=== PATIENT | female | born 1995 | race Caucasian/White ===

== ENCOUNTER 2017-07-18 11:50 | Emergency (ER) | payer BC, SELFPAY ==
[2017-07-18 11:52] VITALS: BP 130/70; PULSE 87; RESP 16; TEMP 36.6; O2SAT 99; BMI 21.1
--- NOTE | 2017-07-18 12:10 | RAD_ITS ---
STUDY: X-RAY - LEFT ELBOW REASON FOR EXAM: Female, 21 years old. Fell down 8 steps. Posterior pain radiating towards the hand. TECHNIQUE: 5 view(s) of the elbow. COMPARISON: None. FINDINGS: Normal visualized humerus and radius. There is a nondisplaced fracture through the ulnar olecranon extending into the ulnotrochlear articulation. Normal radiocapitellar and ulnotrochlear articulations. There is an associated joint effusion with elevation of the fat pads. The soft tissue structures are unremarkable. RAD/Elbow min 3 Views IMPRESSION: Nondisplaced fracture of the olecranon. Electronically Signed: Daniel Hawk DO at 13:13 EDT Tel [phone], Service support ,
[2017-07-18] MEDS: HYDROcodone Bitartrate/Apap 5/325 Tablet PO (12:20)
--- NOTE | 2017-07-18 14:04 | ED.VISSUMM ---
- ER Visit Summary Date of Service: 07/18/17 Chief Complaint: Elbow injury History of Present Illness: The patient is a 21 F with a mechanical fall. She landed directly on her left elbow. No other injuries or complaints. She does complain of some paresthesias in her distal left hand in the ulnar distribution. Physical Examination: Tenderness to palpation of the olecranon process. Pain with pronation and supination. Neurovascular intact distally except for paresthesias as noted above. There is an overlying abrasion but nothing communicating with the bone. Test Results: X-rays show an olecranon process fracture. Minimally displaced. Emergency Department Course and Treatment: Patient was placed in a splint. Will refer to orthopedics. Precautions given. She received a short course of Percocet. Precautions discussed. Treatment Plan: Above Disposition: Discharged Impression: 1. Left olecranon fracture This note was generated with [employer] dictation software. It may contain incorrect words, spelling, and punctuation that were not noted in review of the chart prior to signing ED Disposition - Plan for ED Patient: Chief Complaint: Upper Extremity Injury Referrals: Diego Vincent MD [Primary Care Provider] -
--- NOTE | 2017-07-18 14:06 | ED.DEP ---
ED Disposition - Plan for ED Patient: Chief Complaint: Upper Extremity Injury Instructions: ED Fx Elbow Prescriptions: Oxycodone HCl/Acetaminophen [Percocet 5/325] 1 tab PO Q6H PRN PRN 3 Days #12 tab PRN Reason: Pain Referrals: Rafael Michelle MD [STAFF PHYSICIAN] -
[2017-07-18 14:24] VITALS: BP 131/76; PULSE 83; RESP 14; O2SAT 99
== END 2017-07-18 14:25 | disposition home or self-care (01) ==
LOC: ED 12:59
PROVIDERS: Emergency Provider Emergency Medicine; Family Provider Pediatrics; PCP Pediatrics
DX: S52.022A Displaced fracture of olecranon process without intraarticular extension of left ulna, initial encounter for closed fracture (principal); Z79.899 Other long term (current) drug therapy; W18.30XA Fall on same level, unspecified, initial encounter; Y93.89 Activity, other specified; Y92.89 Other specified places as the place of occurrence of the external cause; Y99.8 Other external cause status
CPT/HCPCS: 29105; 73080; 99283

== ENCOUNTER 2018-03-23 10:23 | Emergency (ER) | payer BC, SELFPAY ==
[2018-03-23 10:25] VITALS: BP 133/83; PULSE 96; RESP 14; TEMP 36.7; O2SAT 98; BMI 21.1
--- NOTE | 2018-03-23 10:36 | US_ITS ---
STUDY: ABDOMINAL ULTRASOUND - RIGHT UPPER QUADRANT REASON FOR VISIT: Female, 22 years old. Abdominal pain TECHNIQUE: Multiple ultrasound images were obtained of the abdomen. TECHNICAL QUALITY: Good technical quality COMPARISON: None. FINDINGS: Liver: The liver measures 14.4 cm cm. There is normal echogenicity of the liver. The bile ducts are within normal limits. There is hepatic color flow. There is no demonstrated mass lesion. Gallbladder: Normal distended gallbladder. The gallbladder wall measures 2 mm mm. There is a negative sonographic Frausto's sign. There is no pericholecystic fluid. There are no gallstones. Common Bile Duct (C.B.D.): The common bile duct measures 5 mm mm. Pancreas: Normal size of the head, body of the pancreas. There is normal echogenicity of the pancreas. There is no demonstrated pancreatic mass or cyst. Right Kidney: Normal size of the right kidney. The right kidney measures 10.8 cm in longitudinal dimension cm. Normal renal cortex. The right cortex measures 1.6 cm cm. There is no demonstrated renal mass or cyst. There is no right hydronephrosis. US/Gallbladder IMPRESSION: Unremarkable ultrasound of the right upper quadrant. Electronically Signed: Tj Dougherty, at 11:32 EST Tel , Service support ,
--- NOTE | 2018-03-23 10:44 | ED.DCSUM_ITS ---
- ER Visit Summary Date of Service: 03/23/18 Chief Complaint: Abdominal pain History of Present Illness: The patient is a 22 F with upper abdominal pain for months. It has been getting worse. Worse with eating especially fatty foods. She feels like the food sits in her stomach and takes a long time to empty. Associated with nausea and vomiting. She is concerned about her gallbladder as her family has history of gallbladder disease. No fevers. No jaundice. No other GI symptoms. 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 History of appendectomy and endometriosis. Physical Examination: Afebrile vital signs unremarkable. Alert and oriented. No acute distress. Sitting and moving comfortably. Heart regular rate and rhythm. Lungs clear. Abdomen tender in the right upper quadrant and epigastric region. No guarding or rebound. Negative Frausto sign. CVA is nontender. Skin normal in color without jaundice or pallor. Test Results: We will check labs, urinalysis, and right upper quadrant ultrasound. Emergency Department Course and Treatment: Patient was treated fluids and Zofran while awaiting results. She declined pain medicine, on my initial evaluation. Hemoglobin 15.1 otherwise labs normal. test and urinalysis unremarkable. Ultrasound was unremarkable. Patient is appropriate for outpatient follow-up. No indication for further imaging, testing, admission, specialty consultation. She will be discharged with a course of Zofran. Follow-up with primary care for recheck. Return for new or worsening symptoms. Treatment Plan: As above Disposition: Discharge Impression: 1. Abdominal pain This note was generated with [employer] dictation software. It may contain incorrect words, spelling, and punctuation that were not noted in review of the chart prior to signing ED Disposition - Plan for ED Patient: Chief Complaint: Abd Pain Referrals: Diego Vincent MD [Primary Care Provider] -
[2018-03-23] MEDS: Ondansetron 4 MG/2 ML Vial IV (10:49)
[2018-03-23] MEDS: 0.9% Normal Saline 1,000 ML 1000 ML IV (10:49)
[2018-03-23 11:06] LABS: Absolute Lymphocyte Count 1.66 X10^3/ul (0.83-4.51); Absolute Neutrophil Count 2.8 X10^3/uL (2.0-7.7); Basophil# 0.01 X10^3/uL; Basophil% 0.2 % (0-1); Hematocrit 43.1 % (37-47); Hemoglobin 15.1 g/dl (12.0-15.0); Lymphocyte # 1.66 X10^3/ul (4.0); Lymphocyte % 33.8 % (19-41); Mean Corpuscular Volume 94.1 fL (81-99); Mean Platelet Vol. 9.8 fl (6.2-12.0); Monocyte# 0.41 X10^3/uL; Monocyte% 8.4 % (0-10); Neutrophil # 2.82 X10^3/uL (2.7-7.7); Neutrophil % 57.4 % (47-70); POSITIVE COUNT NO; POSITIVE DIFFERENTIAL NO; POSITIVE MORPHOLOGY NO; Platelet Count 359 K/mm3 (150-450); RBC Distribution Width CV 11.6 % (11.6-14.6); RBC Distribution Width SD 39.6 fl (35.1-43.9); Red Blood Count 4.58 M/mm3 (4.2-5.4); White Blood Count 4.9 K/mm3 (4.4-11.0)
[2018-03-23 11:15] LABS: ALB/GLOB Ratio 1.1 RATIO (0.9-2.4); AST(SGOT) 21 U/L (15-37); Alanine Aminotransfer ALT/SGPT 31 U/L (13-56); Albumin, Serum 3.8 g/dL (3.2-5.0); Alkaline Phosphatase 62 U/L (45-117); Anion Gap 8 (5-15); BUN 8 mg/dL (7-18); BUN/Creat Ratio 12.1 RATIO (10-20); Calcium,Total 8.5 mg/dL (8.5-10.1); Chloride 105 mmol/L (98-107); Creatinine, Serum 0.66 mg/dL (0.55-1.02); EST Glomerular Filtration Rate 118 mL/min (>60); Est Glom Filt Rate - Afr Amer 143 mL/min (>60); Estimated Creatinine Clearance 129.25 ml/min; Globulin 3.5 g/dL (2.2-4.2); Glucose 94 mg/dL (74-106); Lipase 51 U/L (73-393); Potassium 3.8 mmol/L (3.5-5.1); Protein, Total 7.3 g/dL (6.4-8.2); Sodium Level 141 mmol/L (136-145)
[2018-03-23 11:27] LABS: Pregnancy, Serum, hCG Quali. NEGATIVE Negative (0-9 Nonpreg)
[2018-03-23 11:35] LABS: Bacteria 0 SEEN /hpf (None Seen); Mucous, Urine 0 SEEN /hpf (<or=2+); Red Blood Cells-Urine 0 SEEN /hpf (0-5); Squamous Epithelial Cells - UA 0 SEEN /hpf (5-10); White Blood Cells 0 SEEN /hpf (0-5)
[2018-03-23 11:36] LABS: Color, Urine Yellow (Yellow); Glucose, Dipstick Normal (Normal); Ketone-Dipstick Negative (Negative); Leukocyte Esterase-Dipstick Negative /ul (Negative); Nitrite-Dipstick Negative (Negative); Occult Blood-Urine Negative /ul (Negative); Protein-Dipstick Negative (Negative); Specific Gravity, Urine 1.015 (1.002-1.030); Urine Bilirubin Dipstick Negative (Negative); Urine Clarity Clear (Clear); Urine Urobilinogen Normal (Normal)
--- NOTE | 2018-03-23 11:50 | ED.DEP ---
ED Disposition - Plan for ED Patient: Chief Complaint: Abd Pain Instructions: ED Abdominal Pain Unkn Cause Prescriptions: Ondansetron [Zofran Odt] 4 mg PO Q8H PRN PRN #10 tab PRN Reason: Nausea Referrals: Diego Vincent MD [Primary Care Provider] -
[2018-03-23 11:57] VITALS: BP 108/57; PULSE 84; RESP 18; O2SAT 99
--- OUTSIDE RECORDS SUMMARY | 2018-05-17 19:52 | XMS RPT_ITS ---
:1995 Author Organization [facility] Care Team Providers Name Role Phone RAFAEL CALI MD Attending Unavailable PHYSICIAN, NONE Primary Care Unavailable RAFAEL CALI MD Attending Unavailable PHYSICIAN, NONE Primary Care Unavailable ALLEN BAUGH Attending Unavailable Diego Vincent Primary Care Unavailable Tj Coelho Attending Unavailable Diego Vincent Primary Care Unavailable Tj Coelho Attending Unavailable PROBLEMS PROBLEMS DATE TYPE CONDITION / CODE ATTENDING STATUS SOURCE 07/18/2017 Unknown S42.402A - Tj Coelho Active [facility] Unspecified Community fracture of lower Hospital end of left Repository humerus, initial encounter for closed fracture / S42.402A(ICD-10) PROCEDURES PROCEDURES No Procedure Records FoundRESULTS RESULTS DISCHARGE INSTRUCTION Observed: 03/23/2018 Status: F Source: [place] 12:04 PM [facility] REPOSITORY [facility] Medical Records Department [address] [place] [address] Discharge Instruction 03/23/18 1150 MR#: [id number] Acct: [id number] Name: ROCIO ALVARADO Rep #: [id number] : 1995 22 From: Tj Coelho MD PCP: Diego Vincent MD Status: DEP ER ED Disposition - Plan for ED Patient: Chief Complaint: Abd Pain Instructions: ED Abdominal Pain Unkn Cause Prescriptions: Ondansetron [Zofran Odt] 4 mg PO Q8H PRN PRN #10 tab PRN Reason: Nausea Referrals: Diego Vincent MD [Primary Care Provider] - What to do if you have Problems For any increased pain, shortness of breath, bleeding, nausea or vomiting, chest pain, or any unexpected problems, contact your Primary Care Provider. Call [facility] ([phone]) or report to the closest Emergency Room. Call 911 if necessary. 03/23/18 1204 <Electronically signed by Tj Coelho MD> Date Tj Coelho MD Cosigner Signature (If Indicated): Date CC: Diego Vincent MD EMERGENCY DEPARTMENT Observed: 03/23/2018 Status: F Source: [place] SUMMARY 12:04 PM [facility] REPOSITORY [facility] Medical Records Department [address] [place] [id number] Emergency Department Summary 03/23/18 1042 MR#: [id number] Acct: [id number] Name: ROCIO ALVARADO Rep #: [id number] : 1995 22 From: Tj Coelho MD PCP: Diego Vincent MD Status: DEP ER - ER Visit Summary Date of Service: 03/23/18 Chief Complaint: Abdominal pain History of Present Illness: The patient is a 22 F with upper abdominal pain for months. It has been getting worse. Worse with eating especially fatty foods. She feels like the food sits in her stomach and takes a long time to empty. Associated with nausea and vomiting. She is concerned about her gallbladder as her family has history of gallbladder disease. No fevers. No jaundice. No other GI symptoms. No new or HORSE SHOW JUDGE symptoms. History of appendectomy and endometriosis. Physical Examination: Afebrile vital signs unremarkable. Alert and oriented. No acute distress. Sitting and moving comfortably. Heart regular rate and rhythm. Lungs clear. Abdomen tender in the right upper quadrant and epigastric region. No guarding or rebound. Negative Frausto sign. CVA is nontender. Skin normal in color without jaundice or pallor. Test Results: We will check labs, urinalysis, and right upper quadrant ultrasound. Emergency Department Course and Treatment: Patient was treated fluids and Zofran while awaiting results. She declined pain medicine, on my initial evaluation. Hemoglobin 15.1 otherwise labs normal. test and urinalysis unremarkable. Ultrasound was unremarkable. Patient is appropriate for outpatient follow-up. No indication for further imaging, testing, admission, specialty consultation. She will be discharged with a course of Zofran. Follow-up with primary care for recheck. Return for new or worsening symptoms. Treatment Plan: As above Disposition: Discharge Impression: 1. Abdominal pain This note was generated with [employer] dictation software. It may contain incorrect words, spelling, and punctuation that were not noted in review of the chart prior to signing ED Disposition - Plan for ED Patient: Chief Complaint: Abd Pain Referrals: Diego Vincent MD [Primary Care Provider] - What to do if you have Problems For any increased pain, shortness of breath, bleeding, nausea or vomiting, chest pain, or any unexpected problems, contact your Primary Care Provider. Call [facility] ([phone]) or report to the closest Emergency Room. Call 911 if necessary. 03/23/18 1204 <Electronically signed by Tj Coelho MD> Date Tj Coelho MD Cosigner Signature (If Indicated): Date CC: Diego Vincent MD URINALYSIS, COMPLETE Collected: 03/23/2018 Status: F Source: [place] 11:30 AM [facility] REPOSITORY Order Comment: How was Urine Obtained? CLEAN CATCH TYPE CODE TESTS RESULT OUT OF RANGE REFERENCE UNITS LAB L400.3000 Yellow COLOR Normal Yellow LAB L400.3050 Clear Normal CLARITY Clear LAB L400.3200 Normal mg/dl Normal GLUCOSE, UR Normal LAB L400.3300 Negative mg/dL Normal BILIRUBIN URINE Negative LAB L400.3400 Negative mg/dl Normal KETONE UR Negative LAB L400.3465 1.002-1.030 Normal SP.GR. DIPSTX 1.015 LAB L400.3550 5.0 - 8.0 pH UR Normal 8.0 LAB L400.3600 Negative mg/dl PROT Normal DIPSTX Negative LAB L400.3700 Normal mg/dl Normal UROBILI Normal LAB L400.3750 Negative Normal NITRITE UR Negative LAB L400.3780 Negative /ul Normal OCCULT BLOOD-UR Negative LAB L400.3800 Negative /ul LEUK Normal ESTERASE Negative LAB L400.4050 0-5 /hpf WBC 0 Normal SEEN LAB L400.4100 0-5 /hpf 0 Normal RBC-UA SEEN LAB L400.4150 5-10 /hpf SQUAM 0 Normal EPI SEEN LAB L400.4300 None Seen /hpf 0 Normal BACTERIA SEEN LAB L400.4350 <or=2+ /hpf 0 Normal MUCUS, URINE SEEN Performed By: #### L400.0001 #### [facility] [address] [place], [place], [address] CBC W/DIFF, AUTOMATED Collected: 03/23/2018 Status: F Source: [place] 10:50 AM [facility] REPOSITORY TYPE CODE TESTS RESULT OUT OF RANGE REFERENCE UNITS LAB L100.1000 4.4-11.0 K/mm3 Normal WBC 4.9 LAB L100.1200 4.2-5.4 M/mm3 Normal RBC 4.58 LAB L100.1300 12.0-15.0 g/dl High HGB 15.1 LAB L100.1400 37-47 % Normal HCT 43.1 LAB L100.1500 81-99 fL Normal MCV 94.1 LAB L100.1600 27.0-32.0 pg High MCH 33.0 LAB L100.1700 32-36 g/gl Normal MCHC 35.0 LAB L100.1810 11.6-14.6 % Normal RDW CV 11.6 LAB L100.1820 35.1-43.9 fl Normal RDW SD 39.6 LAB L100.1900 150-450 K/mm3 Normal PLT 359 LAB L100.2000 6.2-12.0 fl Normal MPV 9.8 LAB L100.2100 47-70 % Normal NEUT% 57.4 LAB L100.2200 19-41 % Normal LY% 33.8 LAB L100.2300 0-10 % Normal MONO% 8.4 LAB L100.2400 0-5 % Normal EO% 0.0 LAB L100.2500 0-1 % Normal BASO% 0.2 LAB L100.2550 0.0-0.9 % Normal IM GRAN % 0.200 Result Comment: IG% - Immature Granulocytes (promyelocytes, myelocytes and metamyelocytes) > 1% indicates that a LEFT SHIFT is Present. LAB L100.2620 2.0-7.7 X10 3/uL Normal Absolute Neut 2.8 LAB L100.2720 0.83-4.51 X10 3/ul Normal Absolute Lymph 1.66 Performed By: #### L100.0100 #### [facility] [address] [place], [address] COMPREHENSIVE METABOLIC Collected: 03/23/2018 Status: F Source: [facility] 10:50 AM [facility] REPOSITORY TYPE CODE TESTS RESULT OUT OF RANGE REFERENCE UNITS LAB L501.0100 74-106 mg/dL Normal GLU 94 Result Comment: Please note revised GLUCOSE reference range effective 2017. LAB L501.1000 7-18 mg/dL Normal BUN 8 LAB L501.1100 0.55-1.02 mg/dL Normal CREAT,SERUM 0.66 Result Comment: The validity of the calculated GFR AND GFRAA in patients over 70 years has not been determined. Clinical correlation is essential. LAB L501.1110 >60 mL/min Normal EST GFR 118 Result Comment: Non- GFR Calc LAB L501.1115 >60 mL/min Normal EST GFR - AA 143 Result Comment: GFR Calc LAB L501.1255 ml/min Normal Estimated CRCL 129.25 LAB L501.1300 10-20 RATIO BUN/CRE Normal 12.1 LAB L501.1500 6.4-8. g/dL 2 T PROT Normal 7.3 LAB L501.1800 3.2-5. g/dL 0 ALB Normal 3.8 LAB L501.1950 2.2-4. g/dL 2 GLOB Normal 3.5 LAB L501.2000 0.9-2. RATIO 4 A/G Normal 1.1 LAB L501.2200 8.5-10 mg/dL .1 CA Normal 8.5 LAB L501.4100 15-37 U/L AST Normal 21 LAB L501.4305 45-117 U/L ALK P Normal 62 LAB L501.4405 13-56 U/L ALT Normal 31 LAB L501.4600 0.20-1 mg/dL .00 T BILI Normal 0.50 LAB L501.5300 136-14 mmol/L 5 NA Normal 141 LAB L501.5600 3.5-5. mmol/L 1 K Normal 3.8 LAB L501.5900 98-107 mmol/L CL Normal 105 LAB L501.6100 21.0-3 mmol/L 2.0 CO2 Normal 28.0 LAB L501.6200 5-15 GAP Normal 8 Performed By: #### L500.4050, L501.2450 #### [facility] [address] [place], [place], [address] LIPASE Collected: 03/23/2018 Status: F Source: [place] 10:50 AM [facility] REPOSITORY TYPE CODE TESTS RESULT OUT OF REFERENCE UNITS RANGE LAB L501.2450 73-393 U/L Low LIPASE 51 Performed By: #### L500.4050, L501.2450 #### [facility] [address] [place], [address] ,SERUM,HCG QUALI. Collected: Status: F Source: [place] 03/23/2018 10:50 AM [facility] REPOSITORY TYPE CODE TESTS RESULT OUT OF REFERENCE UNITS RANGE LAB L700.7000 0-9 Nonpreg Negative Normal HCGSQUAL NEGATIVE LAB L700.6700 =>Qualitative mIU/mL Normal HCG Qual < 1 triggr Performed By: #### L700.6800 #### [facility] [address] [place], [address] GALLBLADDER Observed: 03/23/2018 Status: F Source: [place] 10:38 AM [facility] REPOSITORY [facility] Imaging Services [address] [place] [address] Gallbladder MR#: [id number] Acct: [id number] Name: ROCIO ALVARADO Rep #: [id number] : 1995 F 22 From: Tj Dougherty MD PCP: Diego Vincent MD Status: REG ER Study: Gallbladder Date of Exam: 03/23/18 Exam# [id number] Ordering Dr: Tj Coelho MD STUDY: ABDOMINAL ULTRASOUND - RIGHT UPPER QUADRANT REASON FOR VISIT: Female, 22 years old. Abdominal pain TECHNIQUE: Multiple ultrasound images were obtained of the abdomen. TECHNICAL QUALITY: Good technical quality COMPARISON: None. FINDINGS: Liver: The liver measures 14.4 cm cm. There is normal echogenicity of the liver. The bile ducts are within normal limits. There is hepatic color flow. There is no demonstrated mass lesion. Gallbladder: Normal distended gallbladder. The gallbladder wall measures 2 mm mm. There is a negative sonographic Frausto's sign. There is no pericholecystic fluid. There are no gallstones. Common Bile Duct (C.B.D.): The common bile duct measures 5 mm mm. Pancreas: Normal size of the head, body of the pancreas. There is normal echogenicity of the pancreas. There is no demonstrated pancreatic mass or cyst. Right Kidney: Normal size of the right kidney. The right kidney measures 10.8 cm in longitudinal dimension cm. Normal renal cortex. The right cortex measures 1.6 cm cm. There is no demonstrated renal mass or cyst. There is no right hydronephrosis. US/Gallbladder IMPRESSION: Unremarkable ultrasound of the right upper quadrant. Electronically Signed: Tj Dougherty, at 11:32 EST Tel , Service support , CC: Diego Vincent MD; Tj Coelho MD Boat Joiner: Signed PROGRESS Observed: 08/23/2017 Status: COMPLETED Source: [place] 10:12 AM [facility] REPOSITORY HNO ID: [id number] Author: Kaia Garcia Service: (none) Author Type: Nurse Practitioner Type: Progress Notes Filed: 08/23/2017 10:34 AM Note Text: Subjective HPI Rocio Alvarado is a 21 year old female who presents with 3 days of cough, sneezing, congestion. She has a history of chronic bronchitis and usually uses advair inhaler at home but no longer has it. She would typically use this for a few days at the onset of a URI. She also usually uses flonase for spring allergies. She has albuterol inhaler at home and has been using it as well. Review of Systems Constitutional: Negative. Negative for fever. HENT: Positive for congestion and sore throat. Negative for ear pain. Respiratory: Positive for cough, sputum production (increased amount) and shortness of breath. Cardiovascular: Positive for chest pain. Gastrointestinal: Negative. Negative for abdominal pain, diarrhea, nausea and vomiting. Musculoskeletal: Negative. Skin: Negative. BP 118/70 Pulse (!) 126 Temp 37.2 ?C (99 ?F) (Tympanic) Resp 18 Wt 65.1 kg (143 lb 9.6 oz) SpO2 98% PAST MEDICAL HISTORY Diagnosis Date - ADHD (attention deficit hyperactivity disorder) - Borderline personality disorder - Endometriosis PAST SURGICAL HISTORY Procedure Laterality Date - APPENDECTOMY HX 12/2014 endometriosis found at that time ALLERGIES Patient has no known allergies. MEDICATIONS albuterol HFA (PROVENTIL HFA, VENTOLIN HFA) 90 mcg/actuation inhaler Inhale 2 Puffs as instructed. Avacqkihfrcjykt-Uipbyootw-GU (BROMFED DM) 2-30-10 mg/5 mL syrup Take 5-10 mL by mouth four times daily as needed. albuterol HFA (PROAIR HFA) 90 mcg/actuation inhaler Inhale 2 Puffs as instructed every 4 hours as needed. dextroamphetamine-amphetamine (ADDERALL) 20 mg tablet Take 20 mg by mouth three times daily. ALPRAZolam (XANAX) 1 mg tablet Take 1.5 mg by mouth at bedtime as needed. lamoTRIgine ER (LAMICTAL XR) 250 mg 24 hr tablet Take 250 mg by mouth once daily. venlafaxine XR (EFFEXOR XR) 150 mg 24 hr capsule Take 175 mg by mouth once daily. hydroCHLOROthiazide (HYDRODIURIL, ESIDRIX) 50 mg tablet Take 50 mg by mouth once daily. FAMILY HISTORY Problem Relation Age of Onset - None Mother - None Father Social History Substance Use Topics - Smoking status: Never Smoker - Smokeless tobacco: Never Used - Alcohol use Yes Objective Physical Exam Constitutional: She is well-developed, well-nourished, and in no distress. HENT: Head: Normocephalic. Right Ear: Tympanic membrane, external ear and ear canal normal. Left Ear: Tympanic membrane, external ear and ear canal normal. Nose: Nose normal. Mouth/Throat: Uvula is midline, oropharynx is clear and moist and mucous membranes are normal. No posterior oropharyngeal edema or posterior oropharyngeal erythema. Eyes: Conjunctivae are normal. Neck: Neck supple. Cardiovascular: Normal rate, regular rhythm and normal heart sounds. Pulmonary/Chest: Effort normal and breath sounds normal. No respiratory distress. She has no wheezes. She has no rales. Lymphadenopathy: She has no cervical adenopathy. Neurological: She is alert. Skin: Skin is warm and dry. No rash noted. Nursing note and vitals reviewed. ASSESSMENT/PLAN: 1. Sinobronchitis - ICD9: 473.9, 490, ICD10: J32.9, J40 - Supportive care with plenty of fluids, rest, and analgesia prn. - refills given for therapies that have prevented worsening in the past. - FLUTICASONE 100 MCG-SALMETEROL 50 MCG/DOSE BLISTR POWDR FOR INHALATION - FLUTICASONE 50 MCG/ACTUATION NASAL SPRAY,SUSPENSION - ALBUTEROL SULFATE HFA 90 MCG/ACTUATION AEROSOL INHALER - Follow-up with your PCP in 3-5 days if symptoms have not improved or sooner if symptoms worsen - Discussed red flags and need for immediate medical evaluation if any occur. - Discussed supportive care treatment with fluids, rest and analgesia. - Discussed expected course of illness Kaia Garcia APRN.D[facility] MSESINAOV Observed: 08/23/2017 Status: COMPLETED Source: [place] 10:00 AM [facility] REPOSITORY Office Visit (WSTR) ROCIO ALVARADO ([id number]) 1995 F Date Time Provider Department 08/23/17 10:00 AM KAIA GARCIA ([place]) [facility] During your visit today, we recorded the following information about you: Temperature Pulse Respiration Blood pressure 99 degrees 126/minute 18/minute 118/70 Weight 65.1 kg Kaia Garcia APRN.D[facility] 08/23/2017 10:34 AM Signed Subjective HPI Rocio Alvarado is a 21 year old female who presents with 3 days of cough, sneezing, congestion. She has a history of chronic bronchitis and usually uses advair inhaler at home but no longer has it. She would typically use this for a few days at the onset of a URI. She also usually uses flonase for spring allergies. She has albuterol inhaler at home and has been using it as well. Review of Systems Constitutional: Negative. Negative for fever. HENT: Positive for congestion and sore throat. Negative for ear pain. Respiratory: Positive for cough, sputum production (increased amount) and shortness of breath. Cardiovascular: Positive for chest pain. Gastrointestinal: Negative. Negative for abdominal pain, diarrhea, nausea and vomiting. Musculoskeletal: Negative. Skin: Negative. BP 118/70 Pulse (!) 126 Temp 37.2 ?C (99 ?F) (Tympanic) Resp 18 Wt 65.1 kg (143 lb 9.6 oz) SpO2 98% PAST MEDICAL HISTORY Diagnosis Date - ADHD (attention deficit hyperactivity disorder) - Borderline personality disorder - Endometriosis PAST SURGICAL HISTORY Procedure Laterality Date - APPENDECTOMY HX 12/2014 endometriosis found at that time ALLERGIES Patient has no known allergies. MEDICATIONS albuterol HFA (PROVENTIL HFA, VENTOLIN HFA) 90 mcg/actuation inhaler Inhale 2 Puffs as instructed. Lvwtsxdukymioht-Qhozxxhyq-TB (BROMFED DM) 2-30-10 mg/5 mL syrup Take 5-10 mL by mouth four times daily as needed. albuterol HFA (PROAIR HFA) 90 mcg/actuation inhaler Inhale 2 Puffs as instructed every 4 hours as needed. dextroamphetamine-amphetamine (ADDERALL) 20 mg tablet Take 20 mg by mouth three times daily. ALPRAZolam (XANAX) 1 mg tablet Take 1.5 mg by mouth at bedtime as needed. lamoTRIgine ER (LAMICTAL XR) 250 mg 24 hr tablet Take 250 mg by mouth once daily. venlafaxine XR (EFFEXOR XR) 150 mg 24 hr capsule Take 175 mg by mouth once daily. hydroCHLOROthiazide (HYDRODIURIL, ESIDRIX) 50 mg tablet Take 50 mg by mouth once daily. FAMILY HISTORY Problem Relation Age of Onset - None Mother - None Father Social History Substance Use Topics - Smoking status: Never Smoker - Smokeless tobacco: Never Used - Alcohol use Yes Objective Physical Exam Constitutional: She is well-developed, well-nourished, and in no distress. HENT: Head: Normocephalic. Right Ear: Tympanic membrane, external ear and ear canal normal. Left Ear: Tympanic membrane, external ear and ear canal normal. Nose: Nose normal. Mouth/Throat: Uvula is midline, oropharynx is clear and moist and mucous membranes are normal. No posterior oropharyngeal edema or posterior oropharyngeal erythema. Eyes: Conjunctivae are normal. Neck: Neck supple. Cardiovascular: Normal rate, regular rhythm and normal heart sounds. Pulmonary/Chest: Effort normal and breath sounds normal. No respiratory distress. She has no wheezes. She has no rales. Lymphadenopathy: She has no cervical adenopathy. Neurological: She is alert. Skin: Skin is warm and dry. No rash noted. Nursing note and vitals reviewed. ASSESSMENT/PLAN: 1. Sinobronchitis - ICD9: 473.9, 490, ICD10: J32.9, J40 - Supportive care with plenty of fluids, rest, and analgesia prn. - refills given for therapies that have prevented worsening in the past. - FLUTICASONE 100 MCG-SALMETEROL 50 MCG/DOSE BLISTR POWDR FOR INHALATION - FLUTICASONE 50 MCG/ACTUATION NASAL SPRAY,SUSPENSION - ALBUTEROL SULFATE HFA 90 MCG/ACTUATION AEROSOL INHALER - Follow-up with your PCP in 3-5 days if symptoms have not improved or sooner if symptoms worsen - Discussed red flags and need for immediate medical evaluation if any occur. - Discussed supportive care treatment with fluids, rest and analgesia. - Discussed expected course of illness KIANA Serrato APRN.CNP 08/23/2017 10:20 AM Signed Take medications as prescribed. If not improving in 3-5 days, or you have worsening symptoms, see your primary care provider for recheck. ACUTE BRONCHITIS: You have acute bronchitis. This means the airway passages in your lungs are inflamed. Bronchitis may be caused by viruses or bacteria. Inhaling cigarette smoke will always make it worse. Exposure to irritating chemicals or second hand smoke as well as allergies can contribute to bronchitis. Repeat episodes of bronchitis may cause lifelong lung problems. Acute bronchitis is usually treated with rest, fluids, cough medicine, and possibly antibiotics or inhaled medicine to open up the small airways. It is very important that you avoid smoke and drink increased amounts of fluids. A cool air vaporizer can help thin bronchial secretions. This makes it easier to cough and clear your chest. If you are a cigarette smoker, consider using nicotine gum or skin patches to help you withdraw. Recovery from bronchitis is often slow, but you should start feeling better after 2-3 days of treatment. Please call your doctor or return here if you have any of the following symptoms: - Increased fever, chills, or chest pain. - Severe shortness of breath or bloody sputum. - Do not improve after 3 days of proper treatment. Referring Provider: SELF [200] Allergies As of Date: 08/23/2017 (No Known Allergies) Date Reviewed: 08/23/2017 Reviewed by: aKia (Rosario Garcia - Fully Assessed Reason for Visit: cough, sneezing and congestion [Other] Cmt: x 2-3 days- she has allergies and is prone to bronchitis-she feels her chest getting tighter Visit Diagnosis:Sinobronchitis [J32.9, J40] Order(s):fluticasone-salmeterol (ADVAIR DISKUS) 100-50 mcg/dose dsdvInhale 1 Puff as instructed twice daily. Rinse mouth out after use with water.Disp: 1 InhalerRfl: 0 fluticasone (FLONASE) 50 mcg/actuation nasal sprayUse 2 Sprays in each nostril once daily. Rinse mouth after use.Disp: 1 BottleRfl: 11 albuterol HFA (PROAIR HFA) 90 mcg/actuation inhalerInhale 2 Puffs as instructed every 4 hours as needed.Disp: 1 InhalerRfl: 0 Prescriptions as of 08/23/2017 Sig: ALBUTEROL SULFATE HFA 90 MCG/* Inhale 2 Puffs as instructed * ALBUTEROL SULFATE HFA 90 MCG/* Inhale 2 Puffs as instructed. BROMPHENIRAMINE-PSEUDOEPHEDRI* Take 5-10 mL by mouth four ti* DEXTROAMPHETAMINE-AMPHETAMINE* Take 20 mg by mouth three avila* ALPRAZOLAM 1 MG TABLET Take 1.5 mg by mouth at bedti* LAMOTRIGINE ER 250 MG TABLET,* Take 250 mg by mouth once luanne* VENLAFAXINE ER 150 MG CAPSULE* Take 175 mg by mouth once luanne* FLUTICASONE 100 MCG-SALMETERO* Inhale 1 Puff as instructed t* FLUTICASONE 50 MCG/ACTUATION * Use 2 Sprays in each nostril * HYDROCHLOROTHIAZIDE 50 MG TAB* Take 50 mg by mouth once nena* Problem List As Of Date 08/23/2017 Noted Resolved Endometriosis [N80.9] Borderline personality disorder [F60.3] ADHD (attention deficit hyperactivity disorder)* Other instructions from your clinician: Take medications as prescribed. If not improving in 3- 5 days, or you have worsening symptoms, see your primary care provider for recheck. ACUTE BRONCHITIS: You have acute bronchitis. This means the airway passages in your lungs are inflamed. Bronchitis may be caused by viruses or bacteria. Inhaling cigarette smoke will always make it worse. Exposure to irritating chemicals or second hand smoke as well as allergies can contribute to bronchitis. Repeat episodes of bronchitis may cause lifelong lung problems. Acute bronchitis is usually treated with rest, fluids, cough medicine, and possibly antibiotics or inhaled medicine to open up the small airways. It is very important that you avoid smoke and drink increased amounts of fluids. A cool air vaporizer can help thin bronchial secretions. This makes it easier to cough and clear your chest. If you are a cigarette smoker, consider using nicotine gum or skin patches to help you withdraw. Recovery from bronchitis is often slow, but you should start feeling better after 2-3 days of treatment. Please call your doctor or return here if you have any of the following symptoms: - Increased fever, chills, or chest pain. - Severe shortness of breath or bloody sputum. - Do not improve after 3 days of proper treatment. Prescriptions ordered this encounter Disp Refills Start End FLUTICASONE 100 MCG-SALMETEROL 50 MC* 1 In* 0 08/23/2017 Route: INHALATION Sig: Inhale 1 Puff as instructed twice daily. Rinse mouth out after use with water. FLUTICASONE 50 MCG/ACTUATION NASAL S* 1 Cornelio* 11 08/23/2017 Route: EACH NOSTRIL Sig: Use 2 Sprays in each nostril once daily. Rinse mouth after use. ALBUTEROL SULFATE HFA 90 MCG/ACTUATI* 1 In* 0 08/23/2017 Route: INHALATION Sig: Inhale 2 Puffs as instructed every 4 hours as needed. Medications Discontinued During This Encounter albuterol HFA (PROAIR HFA) 90 mcg/ac* 1 In* 0 06/27/2017 08/23/2017 Route: INHALATION Sig: Inhale 2 Puffs as instructed every 4 hours as needed. Disc: Reason for discontinue is not on file. Encounter Status:Closed by KAIA GARCIA on 08/23/17 XR ELBOW TWO VIEWS Observed: 07/24/2017 Status: F Source: [employer] 11:07 AM [facility] REPOSITORY ORIGINAL XR ELBOW TWO VIEWS LEFT CLINICAL STATEMENT: lt elbow orif COMPARISON: None FINDINGS:2 intraoperative images were recorded. Dose was measured at 20.89 mGy. Metallic screw is in place within the ulna. Interpreted By: Ingrid Manrique MD Preliminary Report By: Ingrid Manrique MD Electronically Signed By: Ingrid Manrique MD Dictated Date: 07/25/2017 8:37:04 AM Prelim Date: 07/25/2017 8:37:04 AM Sign Date: 07/25/2017 8:38:06 AM XR FLUORO < 1HR Observed: 07/24/2017 Status: F Source: [facility] TIME 11:06 AM [facility] REPOSITORY ORIGINAL Images acquired, not reported on this accession number. PREGU Collected: 07/24/2017 Status: F Source: [email or web address] 7:22 AM [facility] REPOSITORY TYPE CODE TESTS RESULT OUT OF RANGE REFERENCE UNITS LAB PREGU(LOIN C) Test Negative Urine LAB PRUG1(LOIN C) Unknown test HCG not (u) int detected. Performed By: #### PREGU #### [facility] [address] [place], [place] [address] EMERGENCY DEPARTMENT Observed: 07/18/2017 Status: F Source: [place] SUMMARY 5:07 PM [facility] REPOSITORY [facility] Medical Records Department [address] [place] [address] Emergency Department Summary 07/18/17 1404 MR#: [id number] Acct: [id number] Name: ROCIO ALVARADO Rep #: [id number] : 1995 21 From: Tj Coelho MD PCP: Diego Vincent MD Status: DEP ER - ER Visit Summary Date of Service: 07/18/17 Chief Complaint: Elbow injury History of Present Illness: The patient is a 21 F with a mechanical fall. She landed directly on her left elbow. No other injuries or complaints. She does complain of some paresthesias in her distal left hand in the ulnar distribution. Physical Examination: Tenderness to palpation of the olecranon process. Pain with pronation and supination. Neurovascular intact distally except for paresthesias as noted above. There is an overlying abrasion but nothing communicating with the bone. Test Results: X-rays show an olecranon process fracture. Minimally displaced. Emergency Department Course and Treatment: Patient was placed in a splint. Will refer to orthopedics. Precautions given. She received a short course of Percocet. Precautions discussed. Treatment Plan: Above Disposition: Discharged Impression: 1. Left olecranon fracture This note was generated with [employer] dictation software. It may contain incorrect words, spelling, and punctuation that were not noted in review of the chart prior to signing ED Disposition - Plan for ED Patient: Chief Complaint: Upper Extremity Injury Referrals: Diego Vincent MD [Primary Care Provider] - What to do if you have Problems For any increased pain, shortness of breath, bleeding, nausea or vomiting, chest pain, or any unexpected problems, contact your Primary Care Provider. Call [employer] [facility] ([phone]) or report to the closest Emergency Room. Call 911 if necessary. 07/18/171706 <Electronically signed by Tj Coelho MD> Date Tj Coelho MD Cosigner Signature (If Indicated): Date _ CC: Diego Vincent MD DISCHARGE INSTRUCTION Observed: 07/18/2017 Status: F Source: [place] 5:07 PM [facility] REPOSITORY [facility] Medical Records Department [facility] [place] [address] Discharge Instruction 07/18/17 1406 MR#: [id number] Acct: [id number] Name: ROCIO ALVARADO Rep #: [id number] : 1995 21 From: Tj Coelho MD PCP: Diego Vincent MD Status: DEP ER ED Disposition - Plan for ED Patient: Chief Complaint: Upper Extremity Injury Instructions: ED Fx Elbow Prescriptions: Oxycodone HCl/Acetaminophen [Percocet 5/325] 1 tab PO Q6H PRN PRN 3 Days #12 tab PRN Reason: Pain Referrals: Rafael Cali MD [STAFF PHYSICIAN] - What to do if you have Problems For any increased pain, shortness of breath, bleeding, nausea or vomiting, chest pain, or any unexpected problems, contact your Primary Care Provider. Call [facility] ([phone]) or report to the closest Emergency Room. Call 911 if necessary. 07/18/171706 <Electronically signed by Tj Coelho MD> Date Tj Coelho MD Cosigner Signature (If Indicated): Date CC: Diego Vincent MD ELBOW MIN 3 VIEWS Observed: 07/18/2017 Status: F Source: [employer] 12:11 PM [facility] REPOSITORY [facility] Imaging Services [address] [place] [address] Elbow min 3 Views MR#: [id number] Acct: [id number] Name: ROCIO ALVARADO Rep #: [id number] : 1995 F 21 From: Daniel Hawk DO PCP: Diego Vincent MD Status: REG ER Study: Elbow min 3 Views Date of Exam: 07/18/17 Exam# [id number] Ordering Dr: Tj Coelho MD STUDY: X-RAY - LEFT ELBOW REASON FOR EXAM: Female, 21 years old. Fell down 8 steps. Posterior pain radiating towards the hand. TECHNIQUE: 5 view(s) of the elbow. COMPARISON: None. FINDINGS: Normal visualized humerus and radius. There is a nondisplaced fracture through the ulnar olecranon extending into the ulnotrochlear articulation. Normal radiocapitellar and ulnotrochlear articulations. There is an associated joint effusion with elevation of the fat pads. The soft tissue structures are unremarkable. RAD/Elbow min 3 Views IMPRESSION: Nondisplaced fracture of the olecranon. Electronically Signed: Daniel Hawk DO at 13:13 EDT Tel [phone], Service support , CC: Diego Vincent MD; Tj Coelho MD Boat Joiner: Signed PROGRESS Observed: 06/27/2017 Status: COMPLETED Source: [place] 5:39 PM [facility] REPOSITORY HNO ID: [id number] Author: Meggan Caceres Service: (none) Author Type: Nurse Practitioner Type: Progress Notes Filed: 06/27/2017 7:00 PM Note Text: Subjective HPI Patient is here for a 3 week history of cough and congestion. States she had Influenza three weeks ago. Was feeling better for a short time and has gotten progressively worse. Denies known fever. OTC medications with little relief. Nothing makes it better or worse. No other concerns at this time. Review of Systems Constitutional: Positive for chills and malaise/fatigue. Negative for fever. HENT: Positive for congestion, ear pain and sore throat. Respiratory: Positive for cough. Negative for sputum production, shortness of breath and wheezing. Cardiovascular: Negative. Gastrointestinal: Negative for nausea and vomiting. Musculoskeletal: Negative for myalgias. Neurological: Positive for headaches (sinus pressure). Endo/Heme/Allergies: Negative for environmental allergies. All other systems reviewed and are negative. PAST MEDICAL HISTORY Diagnosis Date - ADHD (attention deficit hyperactivity disorder) - Borderline personality disorder - Endometriosis PAST SURGICAL HISTORY Procedure Laterality Date - APPENDECTOMY HX 12/2014 endometriosis found at that time ALLERGIES Review of patient's allergies indicates no known allergies. MEDICATIONS albuterol HFA (PROVENTIL HFA, VENTOLIN HFA) 90 mcg/actuation inhaler Inhale 2 Puffs as instructed. dextroamphetamine-amphetamine (ADDERALL) 20 mg tablet Take 20 mg by mouth three times daily. ALPRAZolam (XANAX) 1 mg tablet Take 1.5 mg by mouth at bedtime as needed. lamoTRIgine ER (LAMICTAL XR) 250 mg 24 hr tablet Take 250 mg by mouth once daily. venlafaxine XR (EFFEXOR XR) 150 mg 24 hr capsule Take 175 mg by mouth once daily. doxycycline (VIBRA-TABS) 100 mg tablet Take 1 tablet by mouth twice daily for 10 days. Idkfhxacwfuamno-Pkxanbyic-OO (BROMFED DM) 2-30-10 mg/5 mL syrup Take 5-10 mL by mouth four times daily as needed. predniSONE (DELTASONE) 20 mg tablet Take 1 tablet by mouth twice daily for 5 days. albuterol HFA (PROAIR HFA) 90 mcg/actuation inhaler Inhale 2 Puffs as instructed every 4 hours as needed. hydroCHLOROthiazide (HYDRODIURIL, ESIDRIX) 50 mg tablet Take 50 mg by mouth once daily. FAMILY HISTORY Problem Relation Age of Onset - None Mother - None Father Social History Substance Use Topics - Smoking status: Never Smoker - Smokeless tobacco: Never Used - Alcohol use Yes BP 100/60 Pulse 68 Temp 36.7 ?C (98 ?F) Resp 16 Wt 64.4 kg (142 lb) LMP 06/09/2017 Objective Physical Exam Constitutional: She is oriented to person, place, and time and well-developed, well-nourished, and in no distress. Vital signs are normal. Mildly ill. HENT: Head: Normocephalic and atraumatic. Right Ear: Tympanic membrane, external ear and ear canal normal. Left Ear: Tympanic membrane, external ear and ear canal normal. Nose: Mucosal edema and rhinorrhea present. Right sinus exhibits no maxillary sinus tenderness and no frontal sinus tenderness. Left sinus exhibits no maxillary sinus tenderness and no frontal sinus tenderness. Mouth/Throat: Uvula is midline, oropharynx is clear and moist and mucous membranes are normal. No oropharyngeal exudate, posterior oropharyngeal edema or posterior oropharyngeal erythema. Neck: Neck supple. Cardiovascular: Normal rate, regular rhythm and normal heart sounds. Pulmonary/Chest: Effort normal and breath sounds normal. She has no wheezes. She has no rales. Harsh cough and fine wheezes noted. Lymphadenopathy: Head (right side): No submental, no submandibular and no tonsillar adenopathy present. Head (left side): No submental, no submandibular and no tonsillar adenopathy present. She has no cervical adenopathy. Submandibular fullness. Neurological: She is alert and oriented to person, place, and time. Skin: Skin is warm and dry. Nursing note and vitals reviewed. ASSESSMENT/PLAN: 1. Sinobronchitis - ICD9: 473.9, 490, ICD10: J32.9, J40 - Will begin treatment with as per antibiotic as written, see orders - The patient should also be given warm salt water gargles, throat lozenges and/or OTC throat spray as needed for the first 5- 7 days of treatment. - Supportive care with plenty of fluids, rest, and analgesia prn. - Follow up in 3-5 days if symptoms persist or worsen. - DOXYCYCLINE HYCLATE 100 MG TABLET - GMEXGACLYUMGPDS-GMRAVZRCVBQFJGT-IF 2 MG-30 MG-10 MG/5 ML SYRUP - PREDNISONE 20 MG TABLET - ALBUTEROL SULFATE HFA 90 MCG/ACTUATION AEROSOL INHALER Prescription instructions reviewed with patient as applicable. Patient advised if symptoms do not improve or if symptoms worsen sooner, to contact their primary care physician. Potential red flag symptoms discussed with the patient. Reviewed appropriate action plan to take if red flag symptoms occur. Patient agreeable to treatment plan. Meggan Caceres CNP CNOV Observed: 06/27/2017 Status: COMPLETED Source: [place] 5:30 PM [facility] REPOSITORY Office Visit (WSTR) ROCIO ALVARADO ([id number]) 1995 F Date Time Provider Department 06/27/17 5:30 PM MEGGAN CACERES) [facility] During your visit today, we recorded the following information about you: Temperature Pulse Respiration Blood pressure 98 degrees 68/minute 16/minute 100/60 Weight 64.4 kg Meggan Caceres CNP 06/27/2017 7:00 PM Signed Subjective HPI Patient is here for a 3 week history of cough and congestion. States she had Influenza three weeks ago. Was feeling better for a short time and has gotten progressively worse. Denies known fever. OTC medications with little relief. Nothing makes it better or worse. No other concerns at this time. Review of Systems Constitutional: Positive for chills and malaise/fatigue. Negative for fever. HENT: Positive for congestion, ear pain and sore throat. Respiratory: Positive for cough. Negative for sputum production, shortness of breath and wheezing. Cardiovascular: Negative. Gastrointestinal: Negative for nausea and vomiting. Musculoskeletal: Negative for myalgias. Neurological: Positive for headaches (sinus pressure). Endo/Heme/Allergies: Negative for environmental allergies. All other systems reviewed and are negative. PAST MEDICAL HISTORY Diagnosis Date - ADHD (attention deficit hyperactivity disorder) - Borderline personality disorder - Endometriosis PAST SURGICAL HISTORY Procedure Laterality Date - APPENDECTOMY HX 12/2014 endometriosis found at that time ALLERGIES Review of patient's allergies indicates no known allergies. MEDICATIONS albuterol HFA (PROVENTIL HFA, VENTOLIN HFA) 90 mcg/actuation inhaler Inhale 2 Puffs as instructed. dextroamphetamine-amphetamine (ADDERALL) 20 mg tablet Take 20 mg by mouth three times daily. ALPRAZolam (XANAX) 1 mg tablet Take 1.5 mg by mouth at bedtime as needed. lamoTRIgine ER (LAMICTAL XR) 250 mg 24 hr tablet Take 250 mg by mouth once daily. venlafaxine XR (EFFEXOR XR) 150 mg 24 hr capsule Take 175 mg by mouth once daily. doxycycline (VIBRA-TABS) 100 mg tablet Take 1 tablet by mouth twice daily for 10 days. Ebnojpxtvdhjywh-Qspivpftt-EA (BROMFED DM) 2-30-10 mg/5 mL syrup Take 5-10 mL by mouth four times daily as needed. predniSONE (DELTASONE) 20 mg tablet Take 1 tablet by mouth twice daily for 5 days. albuterol HFA (PROAIR HFA) 90 mcg/actuation inhaler Inhale 2 Puffs as instructed every 4 hours as needed. hydroCHLOROthiazide (HYDRODIURIL, ESIDRIX) 50 mg tablet Take 50 mg by mouth once daily. FAMILY HISTORY Problem Relation Age of Onset - None Mother - None Father Social History Substance Use Topics - Smoking status: Never Smoker - Smokeless tobacco: Never Used - Alcohol use Yes BP 100/60 Pulse 68 Temp 36.7 ?C (98 ?F) Resp 16 Wt 64.4 kg (142 lb) LMP 06/09/2017 Objective Physical Exam Constitutional: She is oriented to person, place, and time and well-developed, well-nourished, and in no distress. Vital signs are normal. Mildly ill. HENT: Head: Normocephalic and atraumatic. Right Ear: Tympanic membrane, external ear and ear canal normal. Left Ear: Tympanic membrane, external ear and ear canal normal. Nose: Mucosal edema and rhinorrhea present. Right sinus exhibits no maxillary sinus tenderness and no frontal sinus tenderness. Left sinus exhibits no maxillary sinus tenderness and no frontal sinus tenderness. Mouth/Throat: Uvula is midline, oropharynx is clear and moist and mucous membranes are normal. No oropharyngeal exudate, posterior oropharyngeal edema or posterior oropharyngeal erythema. Neck: Neck supple. Cardiovascular: Normal rate, regular rhythm and normal heart sounds. Pulmonary/Chest: Effort normal and breath sounds normal. She has no wheezes. She has no rales. Harsh cough and fine wheezes noted. Lymphadenopathy: Head (right side): No submental, no submandibular and no tonsillar adenopathy present. Head (left side): No submental, no submandibular and no tonsillar adenopathy present. She has no cervical adenopathy. Submandibular fullness. Neurological: She is alert and oriented to person, place, and time. Skin: Skin is warm and dry. Nursing note and vitals reviewed. ASSESSMENT/PLAN: 1. Sinobronchitis - ICD9: 473.9, 490, ICD10: J32.9, J40 - Will begin treatment with as per antibiotic as written, see orders - The patient should also be given warm salt water gargles, throat lozenges and/or OTC throat spray as needed for the first 5-7 days of treatment. - Supportive care with plenty of fluids, rest, and analgesia prn. - Follow up in 3-5 days if symptoms persist or worsen. - DOXYCYCLINE HYCLATE 100 MG TABLET - IJDVOZSBMPLPGCJ-COMANXVEAYQZSVT-AD 2 MG-30 MG-10 MG/5 ML SYRUP - PREDNISONE 20 MG TABLET - ALBUTEROL SULFATE HFA 90 MCG/ACTUATION AEROSOL INHALER Prescription instructions reviewed with patient as applicable. Patient advised if symptoms do not improve or if symptoms worsen sooner, to contact their primary care physician. Potential red flag symptoms discussed with the patient. Reviewed appropriate action plan to take if red flag symptoms occur. Patient agreeable to treatment plan. Meggan Caceres CNP Referring Provider: SELF [200] Allergies As of Date: 06/27/2017 (No Known Allergies) Date Reviewed: 06/27/2017 Reviewed by: Meggan Caceres - Fully Assessed Reason for Visit: Cough [28] Cmt: headache, bilateral ear pain, jaw pain AND chest congestion. Sx started 1.5 wks ago Primary Visit Diagnosis:Sinobronchitis [J32.9, J40] Order(s):doxycycline (VIBRA-TABS) 100 mg tabletTake 1 tablet by mouth twice daily for 10 days.Disp: 20 tabletRfl: 0 Ctyzknuxqumvktz-Ngbvkzthp-LW (BROMFED DM) 2-30-10 mg/5 mL syrupTake 5-10 mL by mouth four times daily as needed.Disp: 120 mLRfl: 0 predniSONE (DELTASONE) 20 mg tabletTake 1 tablet by mouth twice daily for 5 days.Disp: 10 tabletRfl: 0 albuterol HFA (PROAIR HFA) 90 mcg/actuation inhalerInhale 2 Puffs as instructed every 4 hours as needed.Disp: 1 InhalerRfl: 0 Prescriptions as of 06/27/2017 Sig: ALBUTEROL SULFATE HFA 90 MCG/* Inhale 2 Puffs as instructed. DEXTROAMPHETAMINE-AMPHETAMINE* Take 20 mg by mouth three avila* ALPRAZOLAM 1 MG TABLET Take 1.5 mg by mouth at bedti* LAMOTRIGINE ER 250 MG TABLET,* Take 250 mg by mouth once luanne* VENLAFAXINE ER 150 MG CAPSULE* Take 175 mg by mouth once luanne* DOXYCYCLINE HYCLATE 100 MG TA* Take 1 tablet by mouth twice * BROMPHENIRAMINE-PSEUDOEPHEDRI* Take 5-10 mL by mouth four ti* PREDNISONE 20 MG TABLET Take 1 tablet by mouth twice * ALBUTEROL SULFATE HFA 90 MCG/* Inhale 2 Puffs as instructed * HYDROCHLOROTHIAZIDE 50 MG TAB* Take 50 mg by mouth once nena* Medication notes this encounter HYDROCHLOROTHIAZIDE 50 MG TABLET >> Sully Yoo LPN 06/27/2017 5:32 PM >> SULLY YOO LPN SunJun 27, 2017 5:32 PM Not taking Problem List As Of Date 06/27/2017 Noted Resolved Endometriosis [N80.9] Borderline personality disorder [F60.3] ADHD (attention deficit hyperactivity disorder)* Prescriptions ordered this encounter Disp Refills Start End DOXYCYCLINE HYCLATE 100 MG TABLET 20 t* 0 06/27/2017 07/07/2017 Route: ORAL Sig: Take 1 tablet by mouth twice daily for 10 days. AEHSYBAYMNVLTLK-CPHMLRPVZKAPESX-UK 2* 120 * 0 06/27/2017 Route: ORAL Sig: Take 5-10 mL by mouth four times daily as needed. PREDNISONE 20 MG TABLET 10 t* 0 06/27/2017 07/02/2017 Route: ORAL Sig: Take 1 tablet by mouth twice daily for 5 days. ALBUTEROL SULFATE HFA 90 MCG/ACTUATI* 1 In* 0 06/27/2017 Route: INHALATION Sig: Inhale 2 Puffs as instructed every 4 hours as needed. Encounter Status:Closed by MEGGAN CACERES CNP on 06/27/17 CNCO Observed: 06/27/2017 Status: COMPLETED Source: [place] 12:00 AM [facility] REPOSITORY Letter Text [place] Department of Urgent Care Nicki Marroquin CNP [address] [place], [place] [address] 06/27/2017 Rocio Alvarado CCF# [id number] [address] [place] [address] [place] [address] TO WHOM IT MAY CONCERN: This is to confirm that Rocio Alvarado had an appointment and was seen at the [facility] in the Department of Urgent Care by Nicki Marroquin CNP on 06/27/2017. Sincerely yours, Nicki Marroquin CNP PROGRESS Observed: 06/12/2017 Status: COMPLETED Source: [place] 10:38 AM [facility] REPOSITORY HNO ID: [id number] Author: Allen Baugh Service: (none) Author Type: Physician Type: Progress Notes Filed: 06/12/2017 10:40 AM Note Text: 21 year old White female presents today with a complaint of early satiety and stating that food digests very slowly. She is concerned that this may have something to do with her endometriosis. She denies any significant lower abdominal or pelvic pain. Of note, the patient was diagnosed with endometriosis at the time of an appendectomy several years ago. She is currently on OCPs and has been compliant with her medications. Impression: Early satiety. Plan: Refer to GI. Follow-up as needed and for routine annual exams. I spent 20 minutes in the visit, with more than 50% of the total kdim-wo-irot time of the visit in counseling / coordination of care. Allen Baugh MD ALLERGIES ALLERGIES DATE TYPE / CODE NAME / CODE REACTION SEVERITY SOURCE 03/23/2018 Drug No Known Unknown [facility] Allergy/416 Allergies/P49303 [facility] 075320(SNOM 0388(RXNORM) Repository ED CT) Drug NO KNOWN [facility] Class/24128 ALLERGIES [facility] 1003(SNOMED Repository CT) ENCOUNTERS ENCOUNTERS ADMIT/DISCHARGE ACCOUNT NUMBER ADMITTING ENCOUNTER LOCATION SOURCE CLASS 03/23/2018/03/23/20 [id number] Emergency [address] ding:ED Repository 08/23/2017/08/25/19 [id number] Ambulatory [address] Repository 07/24/2017/07/25/19 [id number] Ambulatory BBuilding:OS All 18 DURoom: Health 0001Bed: C [facility] Repository 07/23/2017/07/24/19 [id number] Ambulatory [address] ding:OPRS [facility] Repository 07/18/2017/07/19/19 [id number] Emergency [place] [facility] [address] [place] [address] ding:ED Repository 06/27/2017/06/29/19 [id number] Ambulatory [address] Repository 06/12/2017/06/12/19 [id number] Ambulatory [address] Repository PAYERS PAYERS ENCOUNTER GUARANTOR PAYER SUBSCRIBER SOURCE 03/23/2018 [facility] Insurance:ANTHEMPolicy [facility] [id number] Number: [id number] [id number] Repository [address], [place] Date:8599-09-81CI [address]a: [address] [address]YXL[address]Q, [place] [phone] () [address]SE: 03/23/2018 Secondary NOT GIVENUNK [place] Insurance:SELF PAY [facility] Number: Effective Repository Date:2018-03-23 07/24/2017 [facility] HEMANNDOB: Insurance:ANTHEM BLUE HEMANNDOB: Foundation [id number] CROSS COMMERCIALPolicy [id number] Repository [address]OX Number: [address], [facility] [place] [id number] [place] [address]Pgi: [phone]: [phone]) Date:2017-07-19 - [phone] (HP) [id number] ()Tel: ([phone] Name:[facility] [phone] ([place]) [place], [place] [address]BW: 07/23/2017 [facility] HEMANNDOB: Insurance:ANTHEM HEMANNDOB: [facility] [id number] BENEFITS ADMINPolicy [id number] Repository [id number] Number: JEFF [id number] [address] [id number] [address] [place], [place] Date:2017-07-19 - [place] [address]Ypo: [phone] [id number] Name: [id number]: (HP) [address], [place] [phone]: [phone] () [phone] () 07/18/2017 [facility] ANNA SOLORZANO Insurance:ANTHEMPolicy [facility] [id number] [facility] Number: [id number] [address]Tel: [id number] Repository Date:[id number] [address]) [address], [place] [address]LU: 07/18/2017 Secondary NOT GIVENKARLEE Lal Insurance:SELF PAY [facility]: Effective Repository Date:2017-07-18
== END 2018-03-23 11:58 | disposition home or self-care (01) ==
LOC: ED 11:17
PROVIDERS: Emergency Provider Emergency Medicine; Family Provider Pediatrics; PCP Pediatrics
DX: R10.11 Right upper quadrant pain (principal); R10.13 Epigastric pain; Z79.899 Other long term (current) drug therapy
CPT/HCPCS: 76705; 80053; 81001; 83690; 84703; 85025; 96361; 96374; 99283; J7030; J2405